=== PATIENT | female | born 1960 | race Caucasian/White ===

== ENCOUNTER → 2016-06-28 | Outpatient (CLI) | payer OTHER ==
[~2016-06-28] MED LIST: DEPO METHYLPREDNISOLONE 40 MG/ML SDV ONE; IOPAMIDOL (ISOVUE 370) 100 ML BTL IV ONE; LIDOCAINE 1% 30 ML SDV ONE; NA BICARBONATE 50 MEQ/50 ML VIAL ONE; ROPIVACAINE HCL 150 MG/30 ML INJ ONE
== END ==
LOC: FIMAGING 12:58
PROVIDERS: ATTEND Orthopaedic Surgery
PROC: 3E0U33Z Introduction of Anti-inflammatory into Joints, Percutaneous Approach (ICD-10-PCS; principal; 2016-06-28)
PROC: 3E0U3BZ Introduction of Anesthetic Agent into Joints, Percutaneous Approach (ICD-10-PCS; principal; 2016-06-28)
DX: M19.91 Primary osteoarthritis, unspecified site (principal); M25.551 Pain in right hip; M25.552 Pain in left hip
CPT/HCPCS: J1020; J2795; Q9967

== ENCOUNTER 2017-03-08 07:23 | Inpatient (IN) | payer OTHER ==
--- NOTE | 2017-02-28 09:14 | GHP ---
[f rep st] PREOP HISTORY AND PHYSICAL DATE OF ADMISSION: 03/08/2017 She will be an a.m. admission for surgery on March 08, 2017. PROBLEM #1: Right hip severe degenerative arthritis. HISTORY OF PRESENT ILLNESS: The patient is a 56-year-old woman admitted for a right total hip arthro plasty. She has severe bilateral hip degenerative arthritis. Her hips are very painful. It is diff icult to walk. She is using a cane. 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 Recently, she has been unable to work because her hips are so painful. She is obese. Her surgery h as been postponed while she has been trying to lose weight. PAST MEDICAL HISTORY: She has a known left bundle branch block. She is treated for hypertension. S he has pulmonary hypertension by ultrasound. No history of stents. She had a pelvic thrombosis when she was . She was on Coumadin a long period of time. No history of hepatitis, sleep apnea, or bleeding problems. CURRENT MEDICATIONS: Losartan 25 mg per day. ALLERGIES: Sulfa causes a rash. Amoxicillin causes hives. Metal allergies: None. Latex allergy: None. SOCIAL HISTORY: The patient does not smoke cigarettes or drink alcohol. 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 Her daughter will be staying with her at home and helping her in her recovery. PHYSICAL EXAMINATION: GENERAL: She is an alert, healthy-appearing woman. EYES: The conjunctivae a nd sclerae are clear. Pupils are round and reactive. MOUTH: Good oral hygiene. No loose teeth. C HEST: Clear. HEART: Regular rhythm. No murmurs. EXTREMITIES: Pertinent findings limited to her right hip. Exam of her right hip shows full hip extension and 70 degrees of flexion. As she flexes the hip, she develops a 20-degree external rotation contracture. IMPRESSION ON ADMISSION: 1. Severe bilateral hip degenerative arthritis. 2. Obesity. 3. Left bundle branch block. 4. Treatment for hypertension. 5. History of pulmonary hypertension. She has dropped her weight from to 270 pounds to 250 pounds. Her body mass index is 39.5. PLAN: She will undergo a right total hip arthroplasty. The surgery has been described to her, inclu ding the risks, complications, expectations, and recovery time. Because of her obesity, her complica tion risk is greater. I have talked to her about the risk of dislocation, leg length inequality, inf ection, and sciatic nerve injury. She understands that she is relatively young and may need revision surgery. Her obesity could also contribute to premature failure of the implants. I will probably l engthen her a little bit on the right side to make her more stable and then lengthen her a similar am ount when I do her left side. All her questions have been answered, and she consents to surgery. She is at a higher risk for DVT, and I will treat her with Lovenox postoperatively for 21 days. /[id number]/MODL
[~2017-03-08 07:23] MED LIST changes: -DEPO METHYLPREDNISOLONE 40 MG/ML SDV ONE; -IOPAMIDOL (ISOVUE 370) 100 ML BTL IV ONE; -LIDOCAINE 1% 30 ML SDV ONE; -NA BICARBONATE 50 MEQ/50 ML VIAL ONE; +NS IV ONE; +POVIDONE-IODINE 20 ML in SODIUM CL IRRIG SOLUTION 500 ML IRR ONE; +ROPIVACAINE 0.2% 80 MG, EPINEPHrine 0.2 MG, KETOROLAC TROMETHAMINE 30 MG in BAG 0 ML IU ONE; -ROPIVACAINE HCL 150 MG/30 ML INJ ONE; +TRANEXAMIC ACID IV ONE
[2017-03-08] MEDS ORDERED: ceFAZolin 1 GM/5 ML SYR ONE (08:01)
[2017-03-08] MEDS ORDERED: FAMOTIDINE 20 MG TAB PO ONE (08:19)
[2017-03-08] MEDS ORDERED: DEXAMETHASONE 4 MG/ML VIAL IVP ONE (08:19)
[2017-03-08] MEDS ORDERED: ceFAZolin 2 GM/SWFI 2 GM/20 ML SYR IVP ONE (08:19)
[2017-03-08] MEDS ORDERED: ACETAMINOPHEN 325 MG TAB PO ONE (08:19)
--- NOTE | 2017-03-08 08:44 | PDHPUP ---
History & Physical Update H&P update statement: This history and physical update is based on an assessment of the patient which was completed after admission or registration (within 24 hours), but prior to the surgery/procedure. H&P update: H&P reviewed & patient examined, no change in patient's condition since H&P completed
[2017-03-08] MEDS ORDERED: LIDOCAINE 1% 2 ML INJ ONE (08:49)
--- NOTE | 2017-03-08 09:02 | PDANEPAE ---
ANE History of Present Illness 56 yo F here with OA for R ALEXIS ANE Past Medical History - Cardiovascular History Hx Hypertension: Yes Hx Arrhythmias: No Hx Chest Pain: No Hx Coronary Artery / Peripheral Vascular Disease: No Hx CHF / Valvular Disease: No Hx Palpitations: No Cardiovascular History Comment: L BBB, Murmur, mild pulmonary HTN dx 10-15 yrs ago. Nuclear stress test -NEG - Pulmonary History Hx COPD: No Hx Asthma/Reactive Airway Disease: No Hx Recent Upper Respiratory Infection: No Hx Oxygen in Use at Home: No Hx Sleep Apnea: No Sleep Apnea Screening Result - Last Documented: Negative Pulmonary History Comment: wheezes with URI- Albuterol PRN - Neurologic History Hx Cerebrovascular Accident: No Hx Seizures: No Hx Dementia: No - Endocrine History Hx Diabetes: No Obesity: moderate - Renal History Hx Renal Disorders: Yes Renal History Comment: tx for UTI's x3 October - Liver History Hx Hepatic Disorders: No - Neurological & Psychiatric Hx Hx Neurological and Psychiatric Disorders: No - Cancer History Hx Cancer: No - Congenital Disorder History Hx Congenital Disorders: No - GI History Hx Gastrointestinal Disorders: No - Other Health History Other Health History: R hip pain -OA (bilat hips and knees) "prickly sensation down R leg,numbness in R ft, R butt pain" - Chronic Pain History Chronic Pain: Yes (R hip) - Surgical History Prior Surgeries: C sections-1988,1991 ANE Review of Systems Review of Systems: - Exercise capacity METS (RN): 4 METS ANE Patient History - Allergies Allergies/Adverse Reactions: amoxicillin [Amoxicillin] Allergy (Verified 02/07/17 13:47) Hives Sulfa (Sulfonamide Antibiotics) [Sulfa(Sulfonamide Antibiotics)] Allergy ( Verified 02/07/17 13:47) Rash - Home Medications Home Medications: Acetaminophen [Tylenol ES 500 mg (*)] 500 mg PO DAILY PRN 02/03/17 [Last Taken Unknown] Albuterol [Proventil Inhaler HFA (*)] 1 - 2 puffs IH DAILY PRN 02/03/17 [Last Taken Unknown] Cholecalciferol Vit D3 [Vitamin D3 (*)] 1,000 units PO DAILY 02/03/17 [Last Taken 1 Week Ago ~03/01/17] Diazepam [Valium 5 MG (*)] 5 mg PO HS PRN 02/03/17 [Last Taken 1 Day Ago ~] Diclofenac Sodium/Misoprostol [Diclofenac-Misoprost 50-200 Tb] 1 each PO BID PRN 02/03/17 [Last Taken 1 Week Ago ~03/01/17] Ibuprofen [Motrin (*)] 200 mg PO DAILY PRN 02/03/17 [Last Taken 1 Week Ago ~] Losartan Potassium [Cozaar 25 mg (*)] 25 mg PO DAILY 02/03/17 [Last Taken 23:30] - NPO status NPO Status: no food or drink >8 hours NPO Since - Liquids (Date): 03/07/17 NPO Since - Liquids (Time): 05:30 NPO Since - Solids (Date): 03/07/17 NPO Since - Solids (Time): 23:30 - Anes Hx Anes Hx: no prior problems - Smoking Hx Smoking Status: Former smoker - Alcohol Use Alcohol Use: None - Family Anes Hx Family Anes Hx: none ANE Labs/Vital Signs - Vital Signs Blood Pressure: 141/90 Heart Rate: 84 Respiratory Rate: 18 O2 Sat (%): 97 Height: 172.72 cm Weight: 113.398 kg ANE Physical Exam - Airway Neck exam: FROM Mallampati Score: Class 2 Mouth exam: normal dental/mouth exam - Pulmonary Pulmonary: no respiratory distress, clear to auscultation - Cardiovascular Cardiovascular: regular rate and rhythym, no murmur, rub, or gallop - ASA Status ASA Status: III ANE Anesthesia Plan Anesthesia Plan: GA with mask, spinal Total IV Anesthesia: Yes
[2017-03-08] MEDS ORDERED: MIDAZOLAM 2 MG/2 ML VIAL ONE (09:03)
[2017-03-08] MEDS ORDERED: MIDAZOLAM 2 MG/2 ML VIAL IVP ONE (09:03)
[2017-03-08] MEDS ORDERED: PROPOFOL/EMULSION 500 MG/50 ML BOTTLE IV ONE ×2 (09:10→10:55)
[2017-03-08] MEDS ORDERED: LR 1,000 ML IV ONE (09:20)
[2017-03-08] MEDS ORDERED: LIDOCAINE 1% 2 ML INJ ID PRN (09:20)
[2017-03-08] MEDS ORDERED: ceFAZolin 1 GM VIAL ONE (10:14)
[2017-03-08] MEDS ORDERED: VASOPRESSIN 20 UNIT/ML VIAL ONE (10:33)
[2017-03-08] MEDS ORDERED: HYDROCODONE/APAP 5/325 TAB PO PRN (11:07)
[2017-03-08] MEDS ORDERED: ACETAMINOPHEN 500 MG TAB PO PRN (11:07)
[2017-03-08] MEDS ORDERED: fentaNYL 100 MCG/2 ML INJ IVP PRN (11:07)
[2017-03-08] MEDS ORDERED: OXYCODONE/APAP 5/325 TAB PO PRN (11:07)
[2017-03-08] MEDS ORDERED: NALOXONE HCL 0.4 MG/ML INJ IVP PRN (11:07)
[2017-03-08] MEDS ORDERED: ALBUTEROL 3 ML DEYVIAL IH PRN (11:07)
[2017-03-08] MEDS ORDERED: ONDANSETRON 4 MG/2 ML VIAL IVP PRN ×2 (11:07→11:56)
[2017-03-08] MEDS ORDERED: PHENYLEPHRINE HCL 100 MCG/ML SYR ONE ×2 (11:08)
--- NOTE | 2017-03-08 11:35 | POSTOPPROG ---
Post Op Note Date of Operation: 03/08/17 Surgeon: Yaniv Carpenter Biomedical Engineering Professor: Bolivar Brown/damaso Childress Anesthesiologist: Dr. Jaspal Roberson Anesthesia: IV Sedation, Spinal Post-op Diagnosis: Right hip degenerative arthritis. Procedure: Right total hip arthroplasty Inf/Abcess present in the surg proc area at time of surgery?: No EBL: 100-500
[2017-03-08] MEDS ORDERED: DIAZEPAM 5 MG TAB PO PRN (11:51)
[2017-03-08] MEDS ORDERED: ALBUTEROL 60 PUFFS/8 GM MDI IH PRN (11:51)
[2017-03-08] MEDS ORDERED: ONDANSETRON DISINTEGRATING 4 MG TAB PO PRN (11:56)
[2017-03-08] MEDS ORDERED: diphenhydrAMINE 25 MG CAP PO PRN (11:56)
[2017-03-08] MEDS ORDERED: oxyCODONE IR 5 MG TAB PO PRN (11:56)
[2017-03-08] MEDS ORDERED: BISACODYL 10 MG SUPP PR PRN (11:56)
[2017-03-08] MEDS ORDERED: METOCLOPRAMIDE 10 MG/2 ML VIAL IVP PRN (11:56)
[2017-03-08] MEDS ORDERED: LACTULOSE 20 GM/30 ML UDCUP PO PRN (11:56)
[2017-03-08] MEDS ORDERED: PROMETHAZINE HCL 25 MG SUPPR PR PRN (11:56)
[2017-03-08] MEDS ORDERED: MAGNESIUM HYDROXIDE 30 ML UDCUP PO PRN (11:56)
[2017-03-08] MEDS ORDERED: PROMETHAZINE HCL 25 MG/ML INJ IVP PRN (11:56)
[2017-03-08] MEDS ORDERED: DIPHENOXYLATE/ATROPINE LOMOTIL 1 TAB PO PRN (11:56)
[2017-03-08] MEDS ORDERED: POLYETHYLENE GLYCOL 3350 17 GM PKT PO PRN (11:56)
[2017-03-08] MEDS ORDERED: NS 500 ML IV PRN (11:56)
[2017-03-08] MEDS ORDERED: CYCLOBENZAPRINE 10 MG TAB PO PRN (11:56)
[2017-03-08] MEDS ORDERED: LR 1,000 ML IV SCH (12:00)
[2017-03-08] MEDS ORDERED: ALBUTEROL 200 PUFFS/18 GM MDI IH PRN (12:11)
--- NOTE | 2017-03-08 15:35 | GOP ---
[f rep st] OPERATIVE REPORT DATE OF OPERATION: 03/08/2017 SURGEON: Yaniv Carpenter MD BACK HOE MACHINE OPERATOR: Bolivar Brown CFA, and Michael Childress PA-C. ANESTHESIA: A combination of Marcaine spinal, and IV sedation by Dr. Jaspal Roberson. PREOPERATIVE DIAGNOSIS: POSTOPERATIVE DIAGNOSIS: Right hip severe degenerative arthritis. PROCEDURE PERFORMED: Right total hip arthroplasty, ceramic femoral head on highly cross-link polyethylene cup liner. FINDINGS: DESCRIPTION OF PROCEDURE: The patient was given 3 g of IV Ancef preoperatively within 60 minutes of surgery. Her weight is 250 pounds necessitating the higher dose of Ancef. She also received IV tranexamic acid at a dose of 20 mg/ kg. She was placed on the operating room table and given spinal anesthesia with Marcaine by Dr. Jaspal Roberson. She was then placed supine and given sedation. A Camacho catheter was not used. She wore a CLAUDIA stocking and SCD on the nonoperative leg. She was rolled to the left lateral decubitus position. The position was secured with the pegboard table attachment. Positioning was difficult because of her size. An axillary roll was used, and all pressure points were carefully padded. I was careful to lock her pelvis in a rigid vertical position. Her perineum was isolated with plastic adhesive drapes. The right hip and right lower extremity were prepped with ChloraPrep. They were draped free using sterile sheets, stockinette, and Ioban plastic drapes. The [employer] Organization time-out was performed to verify the correct surgical side and site and the correct patient identity. The [place] time-out was also performed. I made a 7-8 inch straight oblique posterolateral hip skin incision. Subcutaneous tissues were sharply divided, and hemostasis was obtained using electrocautery. Her layer of subcutaneous fat was 3-4 inches thick. Her fascia mick was identified and split along the axis of its fibers. I then curved posteriorly and proximally, and split the fascia of the gluteus rené and bluntly split the muscle fibers in line with their orientation. The Charnley self-retaining retractor was inserted. Her sciatic nerve was located, partially exposed, and protected throughout the procedure. The external rotators and the posterior hip capsule were divided as separate layers at the base of the femoral neck, tagged, and reflected posteriorly. A smooth eighth- inch Steinmann pin was inserted vertically into the ilium, superior to the acetabulum. An eighth-inch drill bit was inserted vertically into the greater trochanter and parallel to the first pin. The distance between the 2 was measured for leg length reference. Her femoral head was dislocated posteriorly. Severe degenerative changes were present on the femoral head. Her femoral neck was osteotomized at the appropriate level and inclination. I was careful to preserve all the posterior capsule and most of the anterior capsule. The remnant of her badly damaged labrum was excised. I prepared the femur first. This allowed me to continuous dryout operator helper the amount of natural femoral neck anteversion. This, in turn, allowed me to later determine the correct amount of cup anteversion. She had between 15 and 20 degrees of natural femoral neck anteversion. The canal was opened laterally with a box chisel. I hand broached sequentially up to size 4. I used a size 4 Accolade II broach as a trial stem. I was careful to lateralize adequately. Appropriate retractors were inserted to expose her acetabulum. The acetabulum was reamed sequentially up to 53 mm. I selected a 54 mm Gene Tritanium cluster-hole hemispherical shell. This was tapped securely into place in the proper degree of inclination and anteversion. I used the transverse acetabular ligament and other acetabular bony landmarks to help me properly orient the cup. I inserted a 25 mm and a 30 mm supplemental fixation screws through the shell for additional fixation. I also inserted a screw in metal dome hole plug. I performed a series of trial reductions to determine length and stability. I concluded that the size 4 stem with the standard offset and a 0 mm neck, and a 36 mm head with a flush, or 0-degree, liner gave me the proper combination of appropriate length and good anterior and posterior stability. I recognized that I was lengthening her. Because of her preoperative femoral neck fracture, I did not think a high offset stem was a good option for making her more stable. In addition, I am going to be doing her other hip in a couple months, and I will regain the length on the left side at that time. The flush, or 0-degree, Caldwell X3 highly cross-linked polyethylene liner was inserted and tapped securely into place. I selected the Caldwell Accolade II stem in a size 5 with a standard offset. This was inserted press-fit and was very tight. I did one final trial reduction and confirmed that the 0 neck length with a 36 mm head was the proper combination. The Gene Biolox Delta ceramic head with an outside diameter of 36 mm and a neck length of 0 mm was tapped securely onto the clean trunnion. The acetabulum was irrigated and cleaned, and the hip was reduced one final time. She had excellent anterior and posterior stability with a moderate amount of lengthening. 40 mL of the joint anesthetic cocktail was injected into the capsule, the deep musculature, and the subcutaneous tissues around the skin edges. The joint was thoroughly irrigated one final time with a dilute Betadine solution. The sciatic nerve was reinspected and looked unharmed. The external rotators and the posterior hip capsule were repaired in separate layers with #2 FiberWire sutures through drill holes in the greater trochanter. This provided a strong posterior capsular and external rotator repair. The fascia mick was closed first with a couple [id number] #2 FiberWire interrupted sutures followed by a running #2 barbed Ethicon Stratafix PDO suture. The subcutaneous tissues were closed in layers, first using interrupted 3-0 Monocryl sutures followed by a running 0 barbed Ethicon Stratafix Monoderm suture. The skin was closed with a running 3-0 barbed Ethicon Stratafix Monoderm subcuticular suture. The skin edges were reapproximated and sealed with Dermabond glue. The wound was covered with a strip of Mepilex surgical dressing. A long-leg CLAUDIA stocking and SCD were applied to her right lower extremity. An abduction pillow was placed between her knees. She was awakened from anesthesia and rolled to the supine position on her [facility]. She was taken to PACU in satisfactory condition. There were no recognized intraoperative complications. The estimated blood loss was about 400 mL. The sponge and needle count was correct on 2 occasions. I used a Gene Tritanium hemispherical cluster hole acetabular shell with an outside diameter of 54 mm. I used a 25 mm and a 35 mm supplemental fixation screw. The liner was a Gene X3 0-degree highly cross-linked liner with an inside diameter of 36 mm. The femoral component was a Gene press-fit Accolade II standard offset in a size 4. The femoral head was a Caldwell Biolox Delta ceramic head with a 0 neck length and a 36 mm outside diameter. Bolivar Brown CFA, and Michael Childress PA-C acted as surgical assistants. Their assistance was a medical necessity for safe completion of the procedure. POSTOPERATIVE DIAGNOSIS: Right hip severe degenerative arthritis. /[id number]/MODL MTDD
[2017-03-08] MEDS: ACETAMINOPHEN 325 MG TAB PO SCH ×2 (16:03→18:29)
[2017-03-08] MEDS: KETOROLAC 30 MG/1 ML SDV IVP PRN ×2 (16:30→23:10)
--- NOTE | 2017-03-08 17:19 | POSTANESTH ---
Post Anesthetic Evaluation Cardiovascular Status: Normal, Stable, Similar to Pre-Op Cond Respiratory Status: Normal, Stable, Similar to Pre-op Cond. Level of Consciousness/Mental Status: Can Participate in Eval, Alert and Oriented Pain Control: Adequate, Prn Tx Ordered Nausea/Vomiting Control: Adequate, Prn Tx Ordered Complications Possibly Related to Anesthesia: None Noted
[2017-03-08] MEDS: ceFAZolin 2 GM/DEXTROSE 100 ML IV SCH (18:31)
[2017-03-08] MEDS: traMADol 50 MG TAB PO PRN (18:49)
[2017-03-08] MEDS: FAMOTIDINE 20 MG TAB PO SCH (20:09)
[2017-03-08] MEDS: SENNOSIDES/DOCUSATE SODIUM TAB PO SCH (20:09)
[2017-03-09] MEDS: ACETAMINOPHEN 325 MG TAB PO SCH ×3 (00:42→15:18)
[2017-03-09] MEDS: traMADol 50 MG TAB PO PRN ×3 (00:42→12:32)
[2017-03-09] MEDS: ceFAZolin 2 GM/DEXTROSE 100 ML IV SCH (02:09)
[2017-03-09 04:54] VITALS: PULSE 86
[2017-03-09 07:10] VITALS: RESP 16; TEMP 98.2; O2SAT 95
[2017-03-09] MEDS ORDERED: LOSARTAN POTASSIUM 25 MG TAB PO SCH (09:00)
[2017-03-09] MEDS ORDERED: FERROUS SULFATE 140 MG TAB.ER PO SCH (09:00)
[2017-03-09] MEDS ORDERED: ENOXAPARIN 40 MG/0.4 ML SYR SC SCH (09:00)
[2017-03-09] MEDS: SENNOSIDES/DOCUSATE SODIUM TAB PO SCH (09:02)
[2017-03-09] MEDS: FAMOTIDINE 20 MG TAB PO SCH (09:03)
[2017-03-09 09:04] VITALS: BP 113/66
[2017-03-09] MEDS ORDERED: HYDROCODONE/APAP 5/325 TAB PO PRN (09:51)
--- NOTE | 2017-03-09 09:52 | SOAPPROG ---
SOAP Progress Note Assessment/Plan: Assessment: Awake and alert. Afebrile. Mild pain. She has been up and walking. Her dressing is dry. Sciatic nerve intact. H&H are satisfactory. Postop films look good. Plan: Continue physical therapy today. Discharge later today. 03/09/17 09:51 Objective: Vital Signs Temp Pulse Resp BP Pulse Ox 36.8 C 86 16 113/66 95 03/09/17 07:08 03/09/17 07:08 03/09/17 07:08 03/09/17 09:02 03/09/17 07:08 Laboratory Results 03/09/17 04:30 03/08/17 03/09/17 03/10/17 05:59 05:59 05:59 Intake Total 2698 Output Total 550 100 Balance 2148 -100 ICD10 Worksheet Patient Problems: Problems Problem Status Onset Osteoarthritis of right hip Acute
--- NOTE | 2017-03-09 10:08 | GDS ---
[f rep st] DISCHARGE SUMMARY ADMITTING DIAGNOSES: Right hip severe degenerative arthritis. DISCHARGE DIAGNOSES: Right hip severe degenerative arthritis. OPERATION PERFORMED: On 03/08/2017, a right total hip arthroplasty, ceramic femoral head on highly c ross-linked polyethylene cup liner. POSTOPERATIVE COMPLICATIONS: None. CONDITION ON DISCHARGE: Improved. DESCRIPTION OF HOSPITAL COURSE: The patient was admitted to the hospital on the morning of surgery. Her admission CBC was normal. The same day, under a combination of Marcaine, spinal, and IV sedatio n, she underwent a right total hip arthroplasty. Postoperatively, she was treated with multimodal DV T prophylaxis, including Lovenox. She was seen by Physical Therapy and made good progress with ambul ation. On the first postoperative day, her hemoglobin and hematocrit were 10.0 and 30.5. By the time of discharge, she was afebrile. Her wound was clean and dry. She was independent walkin g with a walker. DISPOSITION: She is discharged to her home. DISCHARGE INSTRUCTIONS: She will go to outpatient physical therapy. Continue Lovenox 40 mg subcu da cristofer for 21 days. Use an abduction pillow in bed for 3 weeks. She has prescriptions for oxycodone an d tramadol for pain control. I will see her back in the office on 03/28/2017. If there any problems , she is to call me at the office. /[id number]/MODL
--- NOTE | 2017-03-09 14:18 | ASDISCHSUM ---
Discharge Information Plan Status:Home with No Needs Medically Cleared to Leave: Discharge Date:03/09/2017 01:06 PM CM D/C Disposition:Home, Routine, Self-Care ADT D/C Disposition:Home, Routine, Self-Care Projected Discharge Date:03/09/2017 01:06 PM Transportation at D/C: Discharge Delay Reason: Follow-Up Date:03/09/2017 01:06 PM Discharge Slot: Final Diagnosis: Placement Information Patient Contact Information Contact Name:JSESICA Relationship:Daughter Address: Work Phone: City:[place] Alternate Phone: State/Zip Code:[place] Email: Financial Information Financial Class:[employer] [facility] Primary Plan Number:[id number] Secondary Plan Desc: Secondary Plan Number: Assessment Information Doctor Chiropractic Assessment CJR Did you go to joint Answers: No (why?) Notes: Unable to attend class? Mar.02, sending email with online video CM Note CM Note Notes: Lucrecia is planning to discharge home with her daughter after surgery. Her daughter took off 4 days of work, so she is expecting to have good home care. Lucrecia said she is able to move everything she needs onto the first floor so she does not have to travel up the stairs. She stated she has not attended the joint class, but I let her know I can send her the online video link. Lucrecia has her pre-op appointment with Dr. Carpenter this week. She had many questions centered around outpatient physical therapies and I encouraged her to speak with Dr. Carpenter for recommendations. Date Signed: 02/22/2017 11:42 AM Electronically Signed By:Tricia Tuttle [facility] CM Progress Note CM Note CM Note Notes: Pt medically stable for d/c, no CM d/c needs identified. Date Signed: 03/09/2017 02:17 PM Electronically Signed By:PATIENCE Maguire Intervention Information
--- NOTE | 2017-03-09 14:18 | ASDISCHSUM ---
Discharge Information Plan Status:Home with No Needs Medically Cleared to Leave: Discharge Date:03/09/2017 01:06 PM CM D/C Disposition:Home, Routine, Self-Care ADT D/C Disposition:Home, Routine, Self-Care Projected Discharge Date:03/09/2017 01:06 PM Transportation at D/C: Discharge Delay Reason: Follow-Up Date:03/09/2017 01:06 PM Discharge Slot: Final Diagnosis: Placement Information Patient Contact Information Contact Name:JESSICA Relationship:Daughter Address: Work Phone: City:[place] Alternate Phone: State/Zip Code:[place] Email: Financial Information Financial Class:[employer] [facility] Primary Plan Number:[id number] Secondary Plan Desc: Secondary Plan Number: Assessment Information Carpenter Mate Assessment CJR Did you go to joint Answers: No (why?) Notes: Unable to attend class? Mar.02, sending email with online video CM Note CM Note Notes: Lucrecia is planning to discharge home with her daughter after surgery. Her daughter took off 4 days of work, so she is expecting to have good home care. Lucreica said she is able to move everything she needs onto the first floor so she does not have to travel up the stairs. She stated she has not attended the joint class, but I let her know I can send her the online video link. Lucrecia has her pre-op appointment with Dr. Carpenter this week. She had many questions centered around outpatient physical therapies and I encouraged her to speak with Dr. Carpenter for recommendations. Date Signed: 02/22/2017 11:42 AM Electronically Signed By:Tricia Tuttle [facility] CM Progress Note CM Note CM Note Notes: Pt medically stable for d/c, no CM d/c needs identified. Date Signed: 03/09/2017 02:17 PM Electronically Signed By:PATIENCE Maguire Intervention Information
--- NOTE | 2017-03-09 14:18 | ASDISCHSUM ---
Discharge Information Plan Status:Home with No Needs Medically Cleared to Leave: Discharge Date:03/09/2017 01:06 PM CM D/C Disposition:Home, Routine, Self-Care ADT D/C Disposition:Home, Routine, Self-Care Projected Discharge Date:03/09/2017 01:06 PM Transportation at D/C: Discharge Delay Reason: Follow-Up Date:03/09/2017 01:06 PM Discharge Slot: Final Diagnosis: Placement Information Patient Contact Information Contact Name:JESSICA Relationship:Daughter Address: Work Phone: City:[place] Alternate Phone: State/Zip Code:[place] Email: Financial Information Financial Class:[employer] [facility] Primary Plan Number:[id number] Secondary Plan Desc: Secondary Plan Number: Assessment Information Laundry Tech Assessment CJR Did you go to joint Answers: No (why?) Notes: Unable to attend class? Mar.02, sending email with online video CM Note CM Note Notes: Lucrecia is planning to discharge home with her daughter after surgery. Her daughter took off 4 days of work, so she is expecting to have good home care. Lucrecia said she is able to move everything she needs onto the first floor so she does not have to travel up the stairs. She stated she has not attended the joint class, but I let her know I can send her the online video link. Lucrecia has her pre-op appointment with Dr. Carpenter this week. She had many questions centered around outpatient physical therapies and I encouraged her to speak with Dr. Carpenter for recommendations. Date Signed: 02/22/2017 11:42 AM Electronically Signed By:Tricia Tuttle [facility] CM Progress Note CM Note CM Note Notes: Pt medically stable for d/c, no CM d/c needs identified. Date Signed: 03/09/2017 02:17 PM Electronically Signed By:PATIENCE Maguire Intervention Information
== END 2017-03-09 13:06 | disposition home or self-care (01) | DRG 470 ==
LOC: F3N 07:23
PROVIDERS: ADMIT Orthopaedic Surgery; ATTEND Orthopaedic Surgery
PROC: 0SR904Z Replacement of Right Hip Joint with Ceramic on Polyethylene Synthetic Substitute, Open Approach (ICD-10-PCS; principal; 2017-03-08 09:30)
DX: M16.11 Unilateral primary osteoarthritis, right hip (principal); E66.9 Obesity, unspecified; I10 Essential (primary) hypertension; I44.7 Left bundle-branch block, unspecified; Z68.39 Body mass index [BMI] 39.0-39.9, adult
CPT/HCPCS: 97116-GP; 97161-GP; 97166-GO; 97530-GP; C1713; J0171; J0690; J1100; J1650; J1885; J2250; J2370; J2704; J2795

== ENCOUNTER 2017-06-22 07:04 | Inpatient (IN) | payer OTHER ==
[~2017-06-22 07:04] MED LIST changes: -ROPIVACAINE 0.2% 80 MG, EPINEPHrine 0.2 MG, KETOROLAC TROMETHAMINE 30 MG in BAG 0 ML IU ONE; +ROPIVACAINE 0.2% 80 MG, EPINEPHrine 0.2 MG, KETOROLAC TROMETHAMINE 30 MG in SYRINGE 0 ML IU ONE
[2017-06-22] MEDS ORDERED: FAMOTIDINE 20 MG TAB PO ONE (07:22)
[2017-06-22] MEDS ORDERED: ACETAMINOPHEN 325 MG TAB PO ONE (07:22)
[2017-06-22] MEDS ORDERED: ceFAZolin 2 GM/SWFI 2 GM/20 ML SYR IVP ONE (07:22)
[2017-06-22] MEDS ORDERED: DEXAMETHASONE 4 MG/ML VIAL IVP ONE (07:22)
[2017-06-22] MEDS ORDERED: GABAPENTIN 300 MG CAP PO ONE (07:22)
[2017-06-22] MEDS ORDERED: LR 1,000 ML IV ONE (07:25)
[2017-06-22] MEDS ORDERED: ceFAZolin 1 GM/5 ML SYR ONE (07:46)
[2017-06-22] MEDS ORDERED: MIDAZOLAM 2 MG/2 ML VIAL IVP ONE (09:42)
[2017-06-22] MEDS ORDERED: MIDAZOLAM 2 MG/2 ML VIAL ONE (09:42)
--- NOTE | 2017-06-22 09:42 | PDANEPAE ---
ANE History of Present Illness L ALEXIS ANE Past Medical History - Cardiovascular History Hx Hypertension: Yes Hx Arrhythmias: No Hx Chest Pain: No Hx Coronary Artery / Peripheral Vascular Disease: No Hx CHF / Valvular Disease: No Hx Palpitations: No Cardiovascular History Comment: L BBB, Murmur, mild pulmonary HTN dx 10-15 yrs ago. Nuclear stress test -NEG - Pulmonary History Hx COPD: No Hx Asthma/Reactive Airway Disease: Yes Hx Recent Upper Respiratory Infection: No Hx Oxygen in Use at Home: No Hx Sleep Apnea: No Sleep Apnea Screening Result - Last Documented: Positive Pulmonary History Comment: ENVIRONMENTAL/ANIMAL ISSUES OR. RESPIRATORY ISSUES HAS NOT USED INHALER IN 2 YRS. - Neurologic History Hx Cerebrovascular Accident: No Hx Seizures: No Hx Dementia: No - Endocrine History Hx Diabetes: No Obesity: moderate - Renal History Hx Renal Disorders: Yes Renal History Comment: CHRONIC UTI LAST 03/2017 - Liver History Hx Hepatic Disorders: No - Neurological & Psychiatric Hx Hx Neurological and Psychiatric Disorders: No - Cancer History Hx Cancer: No - Congenital Disorder History Hx Congenital Disorders: No - GI History Hx Gastrointestinal Disorders: No - Other Health History Other Health History: OSTEOARTHRITIS. NUMBNESS RT FOOT IMPROVED POST RT TOTAL HIP 03/2017. PELVIC THROMBOPHLEBITIS - Chronic Pain History Chronic Pain: Yes (LT HIP) - Surgical History Prior Surgeries: RT TOTAL HIP 03/2017. C sections-1988,1991 ANE Review of Systems Review of Systems: - Exercise capacity METS (RN): 4 METS ANE Patient History - Allergies Allergies/Adverse Reactions: amoxicillin [Amoxicillin] Allergy (Verified 05/25/17 14:16) Hives Sulfa (Sulfonamide Antibiotics) [Sulfa(Sulfonamide Antibiotics)] Allergy ( Verified 05/25/17 14:16) Rash - Home Medications Home medications: home medication list seen and reviewed Home Medications: Albuterol [Proventil Inhaler HFA (*)] 1 - 2 puffs IH DAILY PRN 02/03/17 [Last Taken 06/02/16] Losartan Potassium [Cozaar 25 mg (*)] 25 mg PO DAILY 02/03/17 [Last Taken 22:00] Acetaminophen [Tylenol ES 500 mg (*)] 1,000 mg PO BID 05/25/17 [Last Taken 06/21 22:00] Diclofenac Sodium/Misoprostol [Diclofenac-Misoprost 50-200 Tb] 1 each PO BID [Last Taken 06/15/17] Ibuprofen [Motrin (*)] 600 mg PO Q4H PRN 05/25/17 [Last Taken 04/01/17] - NPO status NPO Since - Liquids (Date): 06/22/17 NPO Since - Liquids (Time): 04:30 NPO Since - Solids (Date): 06/21/17 NPO Since - Solids (Time): 22:00 - Anes Hx Anes Hx: no prior problems - Smoking Hx Smoking Status: Former smoker - Alcohol Use Alcohol Use: None - Family Anes Hx Family Anes Hx: none ANE Labs/Vital Signs - Vital Signs Blood Pressure: 143/98 Heart Rate: 93 Respiratory Rate: 16 O2 Sat (%): 96 Height: 172.09 cm Weight: 113.398 kg ANE Physical Exam - Airway Neck exam: FROM Mallampati Score: Class 2 Mouth exam: normal dental/mouth exam - Pulmonary Pulmonary: no respiratory distress, clear to auscultation - Cardiovascular Cardiovascular: regular rate and rhythym, no murmur, rub, or gallop - ASA Status ASA Status: III ANE Anesthesia Plan Anesthesia Plan: GA with mask, spinal Total IV Anesthesia: Yes
[2017-06-22] MEDS ORDERED: PROPOFOL/EMULSION 500 MG/50 ML BOTTLE IV ONE ×2 (09:47→10:54)
[2017-06-22] MEDS ORDERED: PHENYLEPHRINE 10 MG/ML SDV ONE (10:34)
[2017-06-22] MEDS ORDERED: PHENYLEPHRINE HCL 100 MCG/ML SYR ONE (10:34)
--- NOTE | 2017-06-22 11:54 | POSTOPPROG ---
Post Op Note Date of Operation: 06/22/17 Surgeon: Yaniv Carpenter Corrosion Control Specialist: Dianelys Anesthesiologist: Karol Anesthesia: IV Sedation, Spinal Post-op Diagnosis: Left hip severe degenerative arthritis. Procedure: Left total hip arthroplasty. Inf/Abcess present in the surg proc area at time of surgery?: No Depth: Superfical (Skin SQ) (Severe obesity)
[2017-06-22] MEDS ORDERED: PROPOFOL 200 MG/20 ML VIAL ONE (11:57)
[2017-06-22] MEDS ORDERED: ALBUTEROL 60 PUFFS/8 GM MDI IH PRN (12:09)
[2017-06-22] MEDS ORDERED: diphenhydrAMINE 25 MG CAP PO PRN (12:10)
[2017-06-22] MEDS ORDERED: BISACODYL 10 MG SUPP PR PRN (12:10)
[2017-06-22] MEDS ORDERED: MAGNESIUM HYDROXIDE 30 ML UDCUP PO PRN (12:10)
[2017-06-22] MEDS ORDERED: LACTULOSE 20 GM/30 ML UDCUP PO PRN (12:10)
[2017-06-22] MEDS ORDERED: METOCLOPRAMIDE 10 MG/2 ML VIAL IVP PRN (12:10)
[2017-06-22] MEDS ORDERED: PROMETHAZINE HCL 25 MG/ML INJ IVP PRN (12:10)
[2017-06-22] MEDS ORDERED: POLYETHYLENE GLYCOL 3350 17 GM PKT PO PRN (12:10)
[2017-06-22] MEDS ORDERED: TEMAZEPAM 15 MG CAP PO PRN (12:10)
[2017-06-22] MEDS ORDERED: DIPHENOXYLATE/ATROPINE LOMOTIL 1 TAB PO PRN (12:10)
[2017-06-22] MEDS ORDERED: ONDANSETRON DISINTEGRATING 4 MG TAB PO PRN (12:10)
[2017-06-22] MEDS ORDERED: ONDANSETRON 4 MG/2 ML VIAL IVP PRN ×2 (12:10→12:14)
[2017-06-22] MEDS ORDERED: PROMETHAZINE HCL 25 MG SUPPR PR PRN (12:10)
[2017-06-22] MEDS ORDERED: NS 500 ML IV PRN (12:10)
[2017-06-22] MEDS ORDERED: HYDROCODONE/APAP 5/325 TAB PO PRN (12:14)
[2017-06-22] MEDS ORDERED: NALOXONE HCL 0.4 MG/ML INJ IVP PRN (12:14)
[2017-06-22] MEDS ORDERED: fentaNYL 100 MCG/2 ML INJ IVP PRN (12:14)
[2017-06-22] MEDS ORDERED: HYDROmorphONE/DILAUDID 1 MG/ML INJ IVP PRN (12:14)
[2017-06-22] MEDS ORDERED: OXYCODONE/APAP 5/325 TAB PO PRN (12:14)
[2017-06-22] MEDS ORDERED: ACETAMINOPHEN 500 MG TAB PO PRN (12:14)
[2017-06-22] MEDS ORDERED: LR 1,000 ML IV SCH (12:30)
--- NOTE | 2017-06-22 12:49 | GOP ---
[f rep st] OPERATIVE REPORT DATE OF OPERATION: 06/22/2017 SURGEON: Yaniv Carpenter MD MASS SPECTROSCOPIST: Bolivar Brown [facility], and Guero Childress, PAC ANESTHESIA: Marcaine spinal and IV sedation, Jaspal Roberson MD. PREOPERATIVE DIAGNOSIS: 1. Left hip severe degenerative arthritis. 2. Severe obesity. POSTOPERATIVE DIAGNOSIS: 1. Left hip severe degenerative arthritis. 2. Severe obesity. PROCEDURE PERFORMED: FINDINGS: DESCRIPTION OF PROCEDURE: The patient was given 2 g of IV Ancef preoperatively within 60 minutes of surgery. She also received IV tranexamic acid at a dose of 20 mg/kg. She was placed on the operatin g room table and given spinal anesthesia with Marcaine by Dr. Roberson. She was then placed supine and given IV sedation. A Camacho catheter was not used. She wore a CLAUDIA stocking and SCD on the nonoperati ve leg. She was rolled to the right lateral decubitus position. She was very obese, and that made p ositioning and stabilization of her pelvis difficult. The position was secured with the pegboard tab le attachment. An axillary roll was used, and all pressure points were carefully padded. I was care ful to lock her pelvis as rigidly as possible in a vertical position. Her perineum was isolated with plastic adhesive drapes. The left hip and left lower extremity were prepped with ChloraPrep. They were draped free using sterile sheets, stockinette, and Ioban plastic drapes. The World [employer] Organization time-out was performed to verify the correct surgical side and site and the correct patient identity. The [place] time-out was also performed. I made an approximately 8-i gah straight oblique posterolateral hip skin incision. Subcutaneous tissues were sharply divided, an d hemostasis was obtained using electrocautery. She had an approximately 4-inch thick layer of subcu taneous fat. Her size made the exposure difficult, and it required a larger incision. Her fascia la ta was identified and split along the axis of its fibers. I curved posteriorly and proximally, and s plit the fascia of the gluteus rené and bluntly split the muscle fibers in line with their orienta tion. The Charnley self-retaining retractor was inserted. Her sciatic nerve was located, partially exposed and protected throughout the procedure. Because of her size, it was necessary to used the sp ecial bariatric retractor set. The external rotators were divided at the base of the femoral neck, t agged, and reflected posteriorly. Her capsule was very thin and scarred because of the severe arthri tis. It was not possible to identify a specific capsular layer which could later be repaired. A [facility] 8-inch Steinmann pin was inserted vertically into the ilium, superior to the acetabulum. An 8th- inch drill bit was inserted vertically into the greater trochanter and parallel to the first pin. Th e distance between the two was measured for leg length reference. Her femoral head was dislocated po steriorly. Severe degenerative changes were present on the head. Her femoral neck was osteotomized at the appropriate level and inclination. She had a lot of osteophyte formation around the periphery of her acetabulum. These were trimmed with a rongeur. The remnant of her damaged labrum was completely excised. The femur was prepared first. This allowed me to marble helper the amount of natural femoral neck anteversio n. She had 20 to 25degrees of natural femoral neck anteversion. Her canal was opened laterally with a box chisel. I then used a starter reamer followed by hand broaching sequentially up to a size 4. I was using a Gene Accolade 2 stem. The size 4 broach was used as a trial stem. I was careful t o lateralize adequately. Appropriate retractors were inserted to expose her acetabulum. The acetabulum was reamed sequentiall y up to a size 53 mm. I selected the 54 mm [place] Tritanium cluster-holed hemispherical shell. Thi s was tapped securely into place in the proper degree of inclination and anteversion. I had over ant everted her acetabular component on the right side when I had done her right total hip. I was carefu l to dial back less anteversion on this side. I used the remnant of her transverse acetabular ligame nt and other acetabular bony landmarks to help me properly orient the cup. The cup fixation was not as tight is I typically expect. I inserted two 25 mm screws and one 30 mm screw through the acetabul ar shell into the ilium. The screw purchase was excellent and provided adequate stability of the cup . I performed a series of trial reductions to determine length and stability. I concluded that the siz e 4 stem with standard offset and a -5 mm neck with a 36 mm head and a 0 degree trial liner gave me t he proper combination of appropriate length and good anterior and posterior stability. She was 3-5 m m short on the left preoperatively, and I was intentionally lengthening her. The 0 degree, or flush, Gene X3 highly cross-linked polyethylene liner was inserted and tapped sec urely into place. I chose the Gene Accolade II stem in a size 4 with standard offset. This was i nserted press-fit and was very tight. I did one final trial reduction and confirmed that the -5 mm n silvino length with a 36 mm head was the proper combination. I selected the [place] Biolox Delta ceramic head with an outside diameter of 36 mm and a neck length of -5 mm. This was tapped securely onto th e clean trunnion. The acetabulum was irrigated and cleaned, and the hip was reduced one final time. She had excellent anterior and posterior stability and appropriate lengthening. 40 mL of the joint anesthetic cocktail was injected into the capsule, the deep musculature, and subcu taneous tissues around the skin edges. The joint was thoroughly irrigated one final time with a dilu te Betadine solution. Her sciatic nerve was reinspected and looked unharmed. The external rotators were repaired with #2 FiberWire sutures through drill holes in the greater troc hanter. Her fascia mick was repaired first with 2 [id number]-[id number] #2 FiberWire sutures followed by a running #2 barbed Ethicon Stratafix PDO suture. Her subcutaneous tissues were closed in layers usin g interrupted 3-0 Monocryl sutures followed by a running 0 barbed Ethicon Stratafix Monoderm suture. The skin was closed with a running 3-0 barbed Ethicon Stratafix Monoderm subcuticular suture. The s kin edges were reapproximated and sealed with Dermabond glue. The wound was covered with a large Mep ilex, water-proof surgical dressing. A Claudia stocking and SCD were applied to her left lower extremity. She wore a stocking and SCD on the opposite leg during the procedure. An abduction pillow was placed between her knees. She was awaken ed from anesthesia and rolled to the supine position on her [facility]. She was taken to PACU i n satisfactory condition. There were no recognized intraoperative complications. The estimated blood loss was about 400 mL. The procedure overall was quite difficult because of her size. The sponge and needle count were correct on 2 occasions. I used a Gene Tritanium hemispherical cluster-holed press-fit acetabular shell with an outside ethan meter of 54 mm. I inserted 3 supplemental fixation screws through the liner. The liner was a Stryke r X3 0-degree highly cross-linked liner with an inside diameter of 36 mm. The femoral component was a standard offset Accolade II stem in a size 4 and press-fit. The femoral head was a Gene Biolox Delta ceramic head with a -5 mm neck length and a 36 mm outside diameter. Bolivar Brown, OCCUPATIONAL THER, and Guero Childress, PAC, acted as surgical assistants. Their assistance was a medical necessity for safe completion of the procedure. OPERATIONS PERFORMED: A left total hip arthroplasty, ceramic femoral head on highly cross-linked simone yethylene cup liner. /[id number]/MODL
[2017-06-22] MEDS ORDERED: ceFAZolin 2 GM/SWFI 2 GM/20 ML SYR IVP SCH (14:00)
[2017-06-22] MEDS ORDERED: ceFAZolin 2 GM/DEXTROSE 100 ML IV SCH (14:00)
[2017-06-22] MEDS: ceFAZolin 2 GM/SWFI 2 GM/20 ML SYR IVP SCH ×2 (16:34→23:26)
[2017-06-22] MEDS: KETOROLAC 30 MG/1 ML SDV IVP PRN ×2 (16:35→23:26)
[2017-06-22] MEDS: CYCLOBENZAPRINE 10 MG TAB PO PRN (16:35)
[2017-06-22] MEDS: ACETAMINOPHEN 325 MG TAB PO SCH ×2 (17:38→23:28)
[2017-06-22] MEDS: HYDROCODONE/APAP 5/325 TAB PO PRN ×2 (17:47→23:25)
[2017-06-22] MEDS: oxyCODONE IR 5 MG TAB PO PRN (21:04)
[2017-06-22] MEDS: DIAZEPAM 5 MG TAB PO PRN (21:05)
[2017-06-22] MEDS: FAMOTIDINE 20 MG TAB PO SCH (21:05)
[2017-06-22] MEDS: SENNOSIDES/DOCUSATE SODIUM TAB PO SCH (21:05)
[2017-06-22] MEDS: LOSARTAN POTASSIUM 25 MG TAB PO SCH (21:06)
[2017-06-23] MEDS: oxyCODONE IR 5 MG TAB PO PRN ×4 (01:25→18:01)
[2017-06-23] MEDS: DIAZEPAM 5 MG TAB PO PRN ×2 (03:04→21:15)
[2017-06-23] MEDS: ACETAMINOPHEN 325 MG TAB PO SCH ×3 (06:17→18:38)
[2017-06-23] MEDS: HYDROCODONE/APAP 5/325 TAB PO PRN ×3 (07:29→21:16)
[2017-06-23] MEDS: KETOROLAC 30 MG/1 ML SDV IVP PRN ×2 (07:29→16:04)
--- NOTE | 2017-06-23 07:41 | SOAPPROG ---
SOAP Progress Note Assessment/Plan: Assessment: Afebrile. Awake and alert. C/O a lot of pain. Pain radiates down her leg. c/O numbness in leg and foot. Needed catheter in PACU. H/H is good. Films look good. No active foot or toes dorsiflexion. 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 Plan:Try to mobilize. AFO for left ankle. Manage pain. She can't take celebrex because of sulfa allergy. On lovenox for high risk DVT. She will need to be hospitalized several days to observe sciatic nerve injury. 06/23/17 07:37 Objective: Vital Signs Temp Pulse Resp BP Pulse Ox 37.0 C 107 H 16 158/91 H 93 06/23/17 03:10 06/23/17 03:10 06/23/17 03:10 06/23/17 03:10 06/23/17 03:10 Laboratory Results 06/23/17 04:35 06/22/17 06/23/17 06/24/17 05:59 05:59 05:59 Intake Total 2910 300 Output Total 1250 1150 Balance 1660 -850 ICD10 Worksheet Patient Problems: Problems Problem Status Onset Osteoarthritis of left hip Acute Osteoarthritis of right hip Acute
[2017-06-23] MEDS: GABAPENTIN 300 MG CAP PO SCH ×2 (08:49→21:15)
[2017-06-23] MEDS: ENOXAPARIN 40 MG/0.4 ML SYR SC SCH (08:49)
[2017-06-23] MEDS: FAMOTIDINE 20 MG TAB PO SCH ×2 (08:50→21:16)
[2017-06-23] MEDS: SENNOSIDES/DOCUSATE SODIUM TAB PO SCH ×2 (08:50→21:19)
[2017-06-23] MEDS: FERROUS SULFATE 140 MG TAB.ER PO SCH (08:50)
[2017-06-23] MEDS ORDERED: LOSARTAN POTASSIUM 25 MG TAB PO SCH (09:00)
[2017-06-23] MEDS: CYCLOBENZAPRINE 10 MG TAB PO PRN (10:00)
[2017-06-23] MEDS: traMADol 50 MG TAB PO PRN ×2 (11:58→21:15)
--- NOTE | 2017-06-23 15:45 | ASMTCMCOM ---
CM Note CM Note Notes: Pt s/p L total hip arthroplasty. OT rec home/HHC/SNF, PT rec HHC. When this CM discuss discharge w pt she is adamant she will go home and declines HHC at this time. Pt reports her pain is improving and she will have support of her dghtr Chel at home. CM to follow pt progress. Date Signed: 06/23/2017 03:45 PM Electronically Signed By:PATIENCE Maguire
[2017-06-23] MEDS: LOSARTAN POTASSIUM 25 MG TAB PO SCH (21:18)
[2017-06-24] MEDS: oxyCODONE IR 5 MG TAB PO PRN ×3 (01:02→13:06)
[2017-06-24] MEDS: ACETAMINOPHEN 325 MG TAB PO SCH ×3 (02:16→10:52)
[2017-06-24] MEDS: DIAZEPAM 5 MG TAB PO PRN (04:28)
[2017-06-24] MEDS: HYDROCODONE/APAP 5/325 TAB PO PRN ×3 (04:28→18:03)
--- NOTE | 2017-06-24 07:26 | SOAPPROG ---
SOAP Progress Note Assessment/Plan: Assessment: Afebrile. Awake and alert. C/O a lot of pain. Pain radiates down her leg. c/O numbness in leg and foot. Needed catheter in PACU. H/H is good. Films look good. No active foot or toes dorsiflexion. 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 Plan:Try to mobilize. AFO for left ankle. Manage pain. She can't take celebrex because of sulfa allergy. On lovenox for high risk DVT. She will need to be hospitalized several days to observe sciatic nerve injury. 06/23/17 07:37 06/24/17 07:25 Afebrile. BP stable. A little less pain today. Has AFO. Was able to take a few steps in room yesterday. H/H is stable. Still has complete foot drop. Cause of sciatic nerve injury was explained to her again. P: Continue PT. She still wants to go directly home. DC Sat. Objective: Vital Signs Temp Pulse Resp BP Pulse Ox 37.1 C 102 H 17 102/58 L 98 06/24/17 00:00 06/24/17 00:00 06/24/17 00:00 06/24/17 00:00 06/24/17 00:00 Laboratory Results 06/24/17 04:27 06/23/17 06/24/17 06/25/17 05:59 05:59 05:59 Intake Total 2910 1100 Output Total 1250 1950 Balance 1660 -850 ICD10 Worksheet Patient Problems: Problems Problem Status Onset Osteoarthritis of left hip Acute Osteoarthritis of right hip Acute
[2017-06-24] MEDS: FAMOTIDINE 20 MG TAB PO SCH ×2 (08:12→20:59)
[2017-06-24] MEDS: GABAPENTIN 300 MG CAP PO SCH ×2 (08:12→20:59)
[2017-06-24] MEDS: CYCLOBENZAPRINE 10 MG TAB PO PRN (08:12)
[2017-06-24] MEDS: FERROUS SULFATE 140 MG TAB.ER PO SCH (08:12)
[2017-06-24] MEDS: SENNOSIDES/DOCUSATE SODIUM TAB PO SCH ×2 (08:12→20:58)
[2017-06-24] MEDS: ENOXAPARIN 40 MG/0.4 ML SYR SC SCH (08:13)
[2017-06-24] MEDS: traMADol 50 MG TAB PO PRN ×2 (10:55→18:04)
--- NOTE | 2017-06-24 12:00 | ASMTCMCOM ---
CM Note CM Note Notes: [facility] [phone] established auth for pt HHC PT with start of care 06/28/17 (intake # is [id number]). Kati will contact pt and find HHC provider. If pt does not d/c by 06/28/17 [facility]. Once orders obtained CM fax to [phone]. Pt declined HHC but w [employer] insurance it would be prudent to keep the auth in case pt changes her mind and CM can notify Kati if no HHC needed. Date Signed: 06/24/2017 11:59 AM Electronically Signed By:PATIENCE Maguire
[2017-06-24] MEDS ORDERED: DICLOFENAC SODIUM 50 MG TAB PO PRN ×2 (13:18→13:38)
[2017-06-24] MEDS ORDERED: MISOPROSTOL 200 MCG TAB PO PRN (13:20)
[2017-06-24] MEDS ORDERED: [UNRECOGNIZED DRUG - OTHER] PO PRN (13:36)
[2017-06-24] MEDS ORDERED: [UNRECOGNIZED DRUG - OTHER] PO SCH (21:00)
[2017-06-24] MEDS: LOSARTAN POTASSIUM 25 MG TAB PO SCH (21:04)
[2017-06-25] MEDS: oxyCODONE IR 5 MG TAB PO PRN ×2 (00:26→09:13)
[2017-06-25] MEDS: DIAZEPAM 5 MG TAB PO PRN (00:27)
[2017-06-25] MEDS: [UNRECOGNIZED DRUG - OTHER] PO SCH ×2 (00:46→12:10)
[2017-06-25] MEDS: ACETAMINOPHEN 325 MG TAB PO SCH ×3 (00:48→12:09)
[2017-06-25 01:05] VITALS: RESP 18
[2017-06-25] MEDS: HYDROCODONE/APAP 5/325 TAB PO PRN ×2 (05:58→12:09)
--- NOTE | 2017-06-25 07:59 | SOAPPROG ---
SOAP Progress Note Assessment/Plan: Assessment: Afebrile. Awake and alert. C/O a lot of pain. Pain radiates down her leg. c/O numbness in leg and foot. Needed catheter in PACU. H/H is good. Films look good. No active foot or toes dorsiflexion. 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 Plan:Try to mobilize. AFO for left ankle. Manage pain. She can't take celebrex because of sulfa allergy. On lovenox for high risk DVT. She will need to be hospitalized several days to observe sciatic nerve injury. 06/23/17 07:37 06/24/17 07:25 Afebrile. BP stable. A little less pain today. Has AFO. Was able to take a few steps in room yesterday. H/H is stable. Still has complete foot drop. Cause of sciatic nerve injury was explained to her again. P: Continue PT. She still wants to go directly home. DC 06/25/17 07:58 Afebrile. Much less pain now. Very little LLE neuritic pain. Still has absent ankle and toe dorsiflexion. Walking in burgos. She is using her AFO intermittantly. Dsg is dry. DC to home today. Will go to OP PT at our [place] office. Objective: Vital Signs Temp Pulse Resp BP Pulse Ox 36.9 C 87 18 100/68 100 06/25/17 00:00 06/25/17 00:00 06/25/17 00:00 06/25/17 00:00 06/25/17 00:00 Laboratory Results 06/24/17 04:27 06/24/17 06/25/17 06/26/17 05:59 05:59 05:59 Intake Total 1100 Output Total 1950 Balance -850 ICD10 Worksheet Patient Problems: Problems Problem Status Onset Osteoarthritis of left hip Acute Osteoarthritis of right hip Acute
[2017-06-25 08:26] VITALS: BP 126/84; PULSE 98; TEMP 98.3; O2SAT 90
--- NOTE | 2017-06-25 08:43 | GDS ---
[f rep st] DISCHARGE SUMMARY ADMISSION DIAGNOSES: 1. Left hip severe degenerative arthritis. 2. Obesity. DISCHARGE DIAGNOSES: 1. Left hip severe degenerative arthritis. 2. Obesity. OPERATION PERFORMED: 06/22/2017, a left total hip arthroplasty. DESCRIPTION OF HOSPITAL COURSE: The patient was admitted to the hospital on the morning of surgery. Her admission CBC was normal. The same day, under a combination of Marcaine, spinal, and IV sedatio n, she underwent a left total hip arthroplasty. Postoperatively, she had a left-sided sciatic nerve injury with a footdrop. She was treated with multimodal DVT prophylaxis including Lovenox. She has had previous thromboembolic disease and is at high risk for recurrent DVT. On the second postoperati ve day, her hemoglobin and hematocrit were 10.5 and 32.6. She was fitted with an AFO for her left an kle and foot to treat the foot drop. She was seen by Physical Therapy and made slow but steady progr ess. She had quite a bit of neuritic pain for the first 48 hours after surgery, but that was improvi ng by the time of discharge. DISPOSITION: The patient is discharged to her home. She will go to outpatient physical therapy at [facility] PT office. Continue Lovenox for 21 days. She may progress to 50% weightbearing on the left. Use CLAUDIA stockings for 1 week. Abduction pillow in bed for 3 weeks. I will see her back in e office on July 14, 2017. If there any problems, she is to call me at the office. /[id number]/MODL
[2017-06-25] MEDS: FERROUS SULFATE 140 MG TAB.ER PO SCH (09:05)
[2017-06-25] MEDS: FAMOTIDINE 20 MG TAB PO SCH (09:05)
[2017-06-25] MEDS: SENNOSIDES/DOCUSATE SODIUM TAB PO SCH (09:05)
[2017-06-25] MEDS: ENOXAPARIN 40 MG/0.4 ML SYR SC SCH (09:06)
[2017-06-25] MEDS: GABAPENTIN 300 MG CAP PO SCH (09:06)
[2017-06-25] MEDS: CYCLOBENZAPRINE 10 MG TAB PO PRN (09:13)
--- NOTE | 2017-06-25 11:11 | ASMTCMCOM ---
CM Note CM Note Notes: Patient has been medically cleared for discharge to home per surgeon. She has declined HHC and will follow up with outpatient physical therapy. CM available should needs arise. Date Signed: 06/25/2017 11:11 AM Electronically Signed By:Concepcion Olivarez RN
--- NOTE | 2017-06-25 11:14 | ASMTLACE ---
ROBERTE Length of stay for Answers: 4-6 days current admission Acuity / Level of Answers: Yes Care: Did the patient have an inpatient admission? # of Emergency department Answers: 0 visits in the last 6 months Score: 7 Date Signed: 06/25/2017 11:13 AM Electronically Signed By:Concepcion Olivarez RN
== END 2017-06-25 13:33 | disposition home or self-care (01) | DRG 470 ==
LOC: F3N 07:04
PROVIDERS: ADMIT Orthopaedic Surgery; ATTEND Orthopaedic Surgery
PROC: 0SRB04Z Replacement of Left Hip Joint with Ceramic on Polyethylene Synthetic Substitute, Open Approach (ICD-10-PCS; principal; 2017-06-22 09:15)
DX: M16.12 Unilateral primary osteoarthritis, left hip (principal); E66.9 Obesity, unspecified; G58.8 Other specified mononeuropathies; I27.20 Pulmonary hypertension, unspecified; I44.7 Left bundle-branch block, unspecified; Z87.440 Personal history of urinary (tract) infections; Z96.641 Presence of right artificial hip joint; Z88.2 Allergy status to sulfonamides; Z87.891 Personal history of nicotine dependence; Z86.718 Personal history of other venous thrombosis and embolism; Z68.39 Body mass index [BMI] 39.0-39.9, adult
CPT/HCPCS: 97116-GP; 97162-GP; 97166-GO; 97530-GP; 97535-GO; C1713; J0171; J0690; J1100; J1650; J1885; J2250; J2370; J2704; J2795

== ENCOUNTER 2018-02-07 05:48 | Observation (INO) | payer OTHER ==
[2018-02-07] MEDS ORDERED: LIDOCAINE 1% 2 ML INJ ID PRN (05:58)
[2018-02-07] MEDS ORDERED: LR 1,000 ML IV ONE (05:58)
[2018-02-07] MEDS ORDERED: ONDANSETRON 4 MG/2 ML VIAL IVP ONE (05:58)
[2018-02-07] MEDS ORDERED: DEXAMETHASONE 4 MG/ML VIAL IVP ONE (05:58)
[2018-02-07] MEDS ORDERED: ACETAMINOPHEN 325 MG TAB PO ONE (05:58)
[2018-02-07] MEDS ORDERED: GABAPENTIN 300 MG CAP PO ONE (05:58)
[2018-02-07] MEDS ORDERED: FAMOTIDINE 20 MG TAB PO ONE (05:58)
[2018-02-07] MEDS ORDERED: ceFAZolin 2 GM/DEXTROSE 100 ML IV ONE (05:58)
[2018-02-07] MEDS ORDERED: POVIDONE-IODINE 20 ML in SODIUM CL IRRIG SOLUTION 500 ML IRR ONE (06:00)
[2018-02-07] MEDS ORDERED: TRANEXAMIC ACID 2,000 MG in NS 100 ML IV ONE (06:00)
[2018-02-07] MEDS ORDERED: TRANEXAMIC ACID 1,000 MG in NS 100 ML IV ONE (06:00)
[2018-02-07] MEDS ORDERED: ROPIVACAINE 0.2% 80 MG, EPINEPHrine 0.2 MG, KETOROLAC TROMETHAMINE 30 MG in SYRINGE 0 ML IU ONE (06:00)
[2018-02-07] MEDS ORDERED: TRANEXAMIC ACID 3,000 MG in NS (SYRINGE) 50 ML IRR ONE (06:00)
[2018-02-07] MEDS ORDERED: VANCOMYCIN 1 GM VIAL ONE (06:35)
[2018-02-07] MEDS ORDERED: TRANEXAMIC ACID 3,000 MG/50 ML BAG IRR ONE (06:35)
[2018-02-07] MEDS ORDERED: ceFAZolin 1 GM/5 ML SYR ONE (06:35)
[2018-02-07] MEDS ORDERED: oxyCODONE IR 5 MG TAB PO PRN (06:51)
[2018-02-07] MEDS ORDERED: fentaNYL 100 MCG/2 ML INJ IVP PRN (06:51)
[2018-02-07] MEDS ORDERED: HYDROCODONE/APAP 5/325 TAB PO PRN (06:51)
[2018-02-07] MEDS ORDERED: ONDANSETRON 4 MG/2 ML VIAL IVP PRN ×2 (06:51→09:32)
[2018-02-07] MEDS ORDERED: HYDROmorphONE/DILAUDID 2 MG/ML INJ IVP PRN (06:51)
[2018-02-07] MEDS ORDERED: ACETAMINOPHEN 500 MG TAB PO PRN (06:51)
[2018-02-07] MEDS ORDERED: NALOXONE HCL 0.4 MG/ML INJ IVP PRN (06:51)
[2018-02-07] MEDS ORDERED: ALBUTEROL 3 ML DEYVIAL IH PRN (06:51)
[2018-02-07] MEDS ORDERED: PROMETHAZINE HCL 25 MG/ML INJ IVP PRN ×2 (06:51→09:32)
[2018-02-07] MEDS ORDERED: MIDAZOLAM 2 MG/2 ML VIAL IVP ONE (06:51)
--- NOTE | 2018-02-07 06:53 | PDANEPAE ---
ANE History of Present Illness Left TKA ANE Past Medical History - Cardiovascular History Hx Hypertension: Yes Hx Arrhythmias: No Hx Chest Pain: No Hx Coronary Artery / Peripheral Vascular Disease: No Hx CHF / Valvular Disease: No Hx Palpitations: No Cardiovascular History Comment: L BBB, Murmur, mild pulmonary HTN dx 10-15 yrs ago. Nuclear stress test -NEG - Pulmonary History Hx COPD: No Hx Asthma/Reactive Airway Disease: Yes Hx Recent Upper Respiratory Infection: No Hx Oxygen in Use at Home: No Hx Sleep Apnea: No Sleep Apnea Screening Result - Last Documented: Positive Pulmonary History Comment: ENVIRONMENTAL/ANIMAL ISSUES OR. RESPIRATORY ISSUES HAS NOT USED INHALER IN 3 YRS. - Neurologic History Hx Cerebrovascular Accident: No Hx Seizures: No Hx Dementia: No - Endocrine History Hx Diabetes: No - Renal History Hx Renal Disorders: Yes Renal History Comment: CHRONIC UTI LAST 03/2017 - Liver History Hx Hepatic Disorders: No - Neurological & Psychiatric Hx Hx Neurological and Psychiatric Disorders: No - Cancer History Hx Cancer: No - Congenital Disorder History Hx Congenital Disorders: No - GI History Hx Gastrointestinal Disorders: No - Other Health History Other Health History: OSTEOARTHRITIS. ANEMIA. NUMBNESS LT CALF/FOOT IMPROVED POST TOTAL HIP. PELVIC THROMBOPHLEBITIS - Chronic Pain History Chronic Pain: Yes (TRAN KNEE'S) - Surgical History Prior Surgeries: TRAN TOTAL HIP LAST 06/2017. C sections-1988,1991 ANE Review of Systems Review of Systems: - Exercise capacity METS (RN): 3 METS ANE Patient History - Allergies Allergies/Adverse Reactions: amoxicillin [Amoxicillin] Allergy (Verified 05/25/17 14:16) Hives Sulfa (Sulfonamide Antibiotics) [Sulfa(Sulfonamide Antibiotics)] Allergy ( Verified 05/25/17 14:16) Rash - Home Medications Home Medications: Losartan Potassium [Cozaar 25 mg (*)] 25 mg PO HS 02/03/17 [Last Taken 02/06/18 13:00] Acetaminophen [Tylenol Arthritis] 1,300 mg PO BID 01/03/18 [Last Taken 02/06/18 22:30] Ibuprofen [Motrin (*)] 600 mg PO BID PRN 01/03/18 [Last Taken 01/31/18] Gabapentin 02/07/18 [Last Taken 02/06/18 20:00] - Smoking Hx Smoking Status: Former smoker ANE Labs/Vital Signs - Vital Signs Height: 171.45 cm Weight: 113.398 kg ANE Physical Exam - Airway Neck exam: FROM Mallampati Score: Class 2 Mouth exam: normal dental/mouth exam - Pulmonary Pulmonary: clear to auscultation - Cardiovascular Cardiovascular: regular rate and rhythym - ASA Status ASA Status: III ANE Anesthesia Plan Anesthesia Plan: spinal Regional Anesthesia: adductor canal FNB Total IV Anesthesia: Yes
--- NOTE | 2018-02-07 06:56 | PDHPUP ---
History & Physical Update H&P update statement: This history and physical update is based on an assessment of the patient which was completed after admission or registration (within 24 hours), but prior to the surgery/procedure. H&P update: H&P reviewed & patient examined
[2018-02-07] MEDS ORDERED: PROPOFOL/EMULSION 500 MG/50 ML BOTTLE IV ONE ×2 (07:00→07:59)
[2018-02-07] MEDS ORDERED: LIDOCAINE 2% 2 ML INJ ONE (07:00)
[2018-02-07] MEDS ORDERED: BUPIVACAINE/DEXTROSE 7.5MG/ML 2 ML SPINAL AMP SP ONE (07:05)
[2018-02-07] MEDS ORDERED: ROPIVACAINE HCL 150 MG/30 ML INJ ONE (07:39)
[2018-02-07] MEDS ORDERED: PHENYLEPHRINE HCL 100 MCG/ML SYR ONE ×3 (08:00→08:50)
--- NOTE | 2018-02-07 09:00 | POSTOPPROG ---
Post Op Note Date of Operation: 02/07/18 Surgeon: Yaniv Carpenter Nut Dehydrator Operator: Kassy Anesthesiologist: Dyana Anesthesia: IV Sedation, Spinal Post-op Diagnosis: left knee severe arthritis Procedure: Left TKA Inf/Abcess present in the surg proc area at time of surgery?: No EBL: 50-100 (ACB in PACU)
[2018-02-07] MEDS ORDERED: PROMETHAZINE HCL 25 MG SUPPR PR PRN (09:32)
[2018-02-07] MEDS ORDERED: POLYETHYLENE GLYCOL 3350 17 GM PKT PO PRN (09:32)
[2018-02-07] MEDS ORDERED: TEMAZEPAM 15 MG CAP PO PRN (09:32)
[2018-02-07] MEDS ORDERED: diphenhydrAMINE 25 MG CAP PO PRN (09:32)
[2018-02-07] MEDS ORDERED: ONDANSETRON DISINTEGRATING 4 MG TAB PO PRN (09:32)
[2018-02-07] MEDS ORDERED: MAGNESIUM HYDROXIDE 30 ML UDCUP PO PRN (09:32)
[2018-02-07] MEDS ORDERED: METOCLOPRAMIDE 10 MG/2 ML VIAL IVP PRN (09:32)
[2018-02-07] MEDS ORDERED: LACTULOSE 20 GM/30 ML UDCUP PO PRN (09:32)
[2018-02-07] MEDS ORDERED: DIPHENOXYLATE/ATROPINE LOMOTIL 1 TAB PO PRN (09:32)
[2018-02-07] MEDS ORDERED: BISACODYL 10 MG SUPP PR PRN (09:32)
[2018-02-07] MEDS ORDERED: NS 500 ML IV PRN (09:32)
--- NOTE | 2018-02-07 09:51 | POSTANESTH ---
Post Anesthetic Evaluation Cardiovascular Status: Normal, Stable Respiratory Status: Normal, Stable Level of Consciousness/Mental Status: Can Participate in Eval, Alert and Oriented Pain Control: Adequate, Prn Tx Ordered Nausea/Vomiting Control: Adequate, Prn Tx Ordered Complications Possibly Related to Anesthesia: None Noted
--- NOTE | 2018-02-07 09:51 | GOP ---
DATE OF OPERATION: 02/07/2018 SURGEON: Yaniv Carpenter MD EMBOSSING PRESS OPERATOR APPRENTICE: Bolivar Brown and Michael Childress. ANESTHESIA: Combination of Marcaine, spinal, IV sedation, and adductor canal block. ANESTHESIOLOGIST: Garfield Turpin DO. PREOPERATIVE DIAGNOSIS: Left knee severe degenerative arthritis with valgus deformity. POSTOPERATIVE DIAGNOSIS: Left knee severe degenerative arthritis with valgus deformity. PROCEDURE PERFORMED: 02/07/2018, left total knee arthroplasty, cemented, Patel and Nephew Journey II , posterior stabilized. FINDINGS: DESCRIPTION OF PROCEDURE: The patient was given 2 g of IV Ancef preoperatively within 60 minutes of surgery. She also received IV tranexamic acid. She was placed on the operating room table and given spinal anesthesia with Marcaine by Dr. Turpin. She was then placed supine and given IV sedation. A Camacho catheter was not used. She wore a CLAUDIA stocking and SCD on the nonoperative leg. Her left lowe r extremity was prepped with ChloraPrep from the upper thigh tourniquet to the tips of the toes. It was draped free using sterile sheets, stockinette, and Ioban plastic adhesive drape. Her lower leg w as wrapped with compressive Coban. The leg was exsanguinated with elevation and a 6-inch compressive wrap, and the pneumatic tourniquet was inflated to 400 mmHg. Her thigh was very bulky. Her BMI was 38. This necessitated a higher tourniquet pressure. The [employer] time-out was performed to verify the correct patient identity and the c orrect surgical side and site. The [place] time-out was also performed. The Briabe Mobileayo leg holding device was sterilely attached to the operating room table and used throughout the procedure to help position the knee. A straight midline incision made centered on the patella. Subcutaneous tissues were sharply divided, and hemostasis was obtained using electrocautery. She had a deep layer of subcutaneous fat. A medial subcutaneous flap was developed, and the capsule and syn ovium were opened in a medial parapatellar fashion. Extensive degenerative changes were present in a ll 3 compartments. Her medial capsule and periosteum were lightly elevated off the rim of the medial tibial plateau all the way around to the posteromedial corner. In order to improve exposure, her patella was prepared first. The original thickness of the patella was measured. Peripheral osteophytes were removed. I cut a flat surface on the back of the patella. She was sized for a 38 mm round resurfacing component. I removed enough bone from the patella such that the remaining bone plus the thickness of the patellar component recreated the original thicknes s of her patella. The composite thickness was 23 mm. The intramedullary alignment guide system was used to set up the distal femoral cut. The distal femu r was cut in 6 degrees of valgus. She had a slight preoperative flexion contracture and I made a +2 mm cut on the distal femur. The sizing jig was used to determine proper femoral sizing. I shifted t he jig anteriorly 2 mm in order to accommodate a size 4 without notching the anterior cortex. The 5- in-1 cutting block was applied, and the anterior and posterior condylar cuts and chamfer cuts were ma de. The final jig was used to remove the central portion of the distal femur to accommodate the post erior stabilized femoral component. I was careful to determine proper rotation by referencing off Wh itesides line and other bony landmarks. Each cut was checked for accuracy. The femur was sized for a size 4 posterior stabilized component. Next, the tibia was prepared. The proximal tibial cut was made using the extramedullary alignment gu leonardo system. The cut was made in a few degrees of posterior slope. I was careful to achieve proper v arus valgus alignment and proper rotation. The posterior compartment was cleared of meniscal remnant s. Osteophytes were removed from the back of her femoral condyles. Because of her preoperative sign ificant valgus alignment she was tight laterally. I released the iliotibial band off the lateral edg e of the tibial plateau. I also released the popliteus attachment and the femoral attachment of the lateral collateral ligament. I then checked the flexion extension gaps, and they were equal and sherif nced and rectangular. The tibia was sized for a size 4 component. With the trial components in plac e, I selected a 10 mm polyethylene posterior stabilized tibial insert. The knee came to full extensi on and flexed to 120 degrees. Her collateral ligaments were stable and balanced in 90 degrees of fle xion and full extension. The trial patellar button was applied, and patellar tracking was checked. Tracking was excellent without digital pressure. 40 mL of the joint anesthetic cocktail were injected into the posterior capsule, the quadriceps muscl e and tendon areas, and the subcutaneous tissues along the skin edges. The surfaces were prepared for cementing. They were carefully cleaned with the pulsating lavage irri gation and thoroughly dried. The CarboJet device was used to blow dry the cancellous surfaces. A do uble batch of high viscosity methylmethacrylate cement with 2 g of powdered vancomycin added was mixe d. While it was still in a doughy state, all [address] components were cemented in place. Excess cement was removed before it hardened. The 10 mm trial tibial insert was re-tried and was the proper thickness . The actual component was inserted and locked into place. The knee was thoroughly irrigated 1 talha l time with a dilute Betadine solution. The tourniquet was deflated and the total tourniquet time wa s 57 minutes. 50 cc of tranexamic acid solution was instilled into the joint. The joint was packed with a lap and the knee was wrapped with a 6-inch compressive wrap, and this was left in place for ab out 3 or 4 minutes. The vastus medialis portion of the extensor mechanism was repaired with several interrupted figure-of -eight #2 FiberWire sutures. The capsule and synovium were closed first with multiple interrupted fi [id number] 0 PDS sutures, followed by a running #2 barbed Ethicon Stratafix PDO suture. The subcu taneous tissues were closed with a running 0 barbed Ethicon Stratafix Monoderm suture. The skin was closed with a running 3-0 barbed Ethicon Stratafix Monoderm subcuticular suture. The skin was sealed with half-inch Steri-Strips. The wound was covered with a large Mepilex waterproof dressing and a 6 -inch compressive wrap. A long-leg CLAUDIA stocking and SCD were applied, followed by the cooling device . The sacral Mepilex dressing was also applied. I used a size 4 cemented Patel and Nephew Oxinium posterior stabilized femoral component, size 4 ceme nted tibial base plate, a 10 mm posterior stabilized tibial insert and a 38 mm cemented round all-simone yethylene resurfacing patellar component. The estimated blood loss following inflation of the tourniquet was about 100 cc. The sponge and needle count were correct on 2 occasions. She was awakened from anesthesia, transferred to her [facility] and taken to PACU in satisfactor y condition. There were no recognized intraoperative complications. In the PACU, for additional pos toperative pain control, Dr. Turpin performed an adductor canal block with an indwelling catheter. Bolivar Brown and Michael Childress acted as surgical assistants. Their assistance was a medical necess ity for safe completion of the procedure. /[id number]/MODL
[2018-02-07] MEDS ORDERED: LR 1,000 ML IV SCH (10:00)
--- NOTE | 2018-02-07 11:29 | PDMN ---
Medical Necessity Medical necessity: Pt meets inpt criteria per MD order and [facility] S-700, Knee Arthroplasty, Total, A-2days. 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
[2018-02-07] MEDS: KETOROLAC 15 MG/1 ML SDV IVP SCH ×3 (12:05→23:24)
[2018-02-07] MEDS: ACETAMINOPHEN 325 MG TAB PO SCH ×3 (12:05→23:24)
[2018-02-07] MEDS: CYCLOBENZAPRINE 10 MG TAB PO PRN ×2 (13:37→21:55)
[2018-02-07] MEDS: HYDROCODONE/APAP 5/325 TAB PO PRN ×2 (15:39→20:34)
[2018-02-07] MEDS: ceFAZolin 2 GM/DEXTROSE 100 ML IV SCH ×2 (15:46→23:27)
[2018-02-07] MEDS: FAMOTIDINE 20 MG TAB PO SCH (20:35)
[2018-02-07] MEDS: SENNOSIDES/DOCUSATE SODIUM TAB PO SCH (20:35)
[2018-02-07] MEDS: GABAPENTIN 300 MG CAP PO SCH (20:51)
[2018-02-07] MEDS ORDERED: LOSARTAN POTASSIUM 25 MG TAB PO SCH (21:00)
[2018-02-08] MEDS: HYDROCODONE/APAP 5/325 TAB PO PRN ×3 (00:34→10:00)
[2018-02-08] MEDS: ACETAMINOPHEN 325 MG TAB PO SCH ×3 (01:42→10:51)
[2018-02-08] MEDS: KETOROLAC 15 MG/1 ML SDV IVP SCH (06:34)
[2018-02-08] MEDS: CYCLOBENZAPRINE 10 MG TAB PO PRN (06:35)
[2018-02-08] MEDS: SENNOSIDES/DOCUSATE SODIUM TAB PO SCH (08:08)
[2018-02-08] MEDS: GABAPENTIN 300 MG CAP PO SCH (08:08)
[2018-02-08] MEDS: FAMOTIDINE 20 MG TAB PO SCH (08:08)
[2018-02-08] MEDS ORDERED: FERROUS SULFATE 140 MG TAB.ER PO SCH (09:00)
[2018-02-08] MEDS ORDERED: ENOXAPARIN 40 MG/0.4 ML SYR SC SCH (09:00)
[2018-02-08] MEDS ORDERED: traMADol 50 MG TAB PO PRN (09:23)
--- NOTE | 2018-02-08 09:26 | SOAPPROG ---
SOAP Progress Note Assessment/Plan: Assessment: Afebrile. Moderate pain. Up and walking in burgos. Has done stairs. H/H is adequate. Films look good. Dsg is dry. Plan: DC today. Leg alignment film before DC. Out patient PT 02/08/18 09:24 Objective: Vital Signs Temp Pulse Resp BP Pulse Ox 36.6 C 92 14 117/78 92 02/08/18 07:31 02/08/18 07:31 02/08/18 07:31 02/08/18 07:31 02/08/18 07:31 Laboratory Results 02/08/18 04:23 02/07/18 14:49 02/07/18 02/08/18 02/09/18 05:59 05:59 05:59 Intake Total 2400 Output Total 750 Balance 1650 ICD10 Worksheet Patient Problems: Problems Problem Status Onset Osteoarthritis of left knee Acute Osteoarthritis of left hip Acute Osteoarthritis of right hip Acute
--- NOTE | 2018-02-08 09:47 | GDS ---
ADMISSION DIAGNOSIS: Left knee severe degenerative arthritis with valgus deformity. DISCHARGE DIAGNOSIS: Left knee severe degenerative arthritis with valgus deformity. PROCEDURE PERFORMED: 02/07/2018, left total knee arthroplasty. POSTOPERATIVE COMPLICATIONS: None. CONDITION ON DISCHARGE: Improved. DESCRIPTION OF HOSPITAL COURSE: The patient was admitted to the hospital on the morning of surgery. Her admission CBC was normal. The same day, under a combination of Marcaine, spinal, IV sedation, and adductor canal block she underwent a left total knee arthroplasty. Postoperatively, she was treated with multimodal DVT prophylaxis, including lovenox. She has a previous history of DVT. On the first postoperative day, her hemoglobin and hematocrit were 10.8 and 32.9. She was seen by Physical Therapy and made good progress with ambulation, knee range of motion and stairs. By the time of discharge, she was afebrile and was independent walking with a walker. DISPOSITION: Patient discharged to her home. She will go to outpatient physical therapy. She has prescriptions for [place] and tramadol for pain. She will also take Meloxicam 7.5 mg a day for 21 days. Continue lovenox 40 mgs SQ daily for 21 days. Use CLAUDIA stockings for 1 week. She may progress her weightbearing on the left as tolerated. If there are any problems, she is to call me at the office. /[id number]/MODL MTDD
[2018-02-08] MEDS ORDERED: LIPID EMULSION 20% 100 ML IV PRN (09:59)
--- NOTE | 2018-02-08 10:05 | PDPAINCON ---
Pain Management Consultation Patient referred by : Pauline - Subjective Pain is: under control Activity: participating in PT - Objective Technique: continuous peripheral nerve block Site: femoral Catheter site: clean, dry, intact Sensory and motor exam: block has resolved, no apparent ill effects Vital signs: stable - Assessment/Plan Assessment/Plan: pain well-controlled, continue current mgmt (Bolused Ropivicaine 0.5% 20cc thru catheter and removed cath.)
--- NOTE | 2018-02-08 12:19 | ASMTLACE ---
LACE Length of stay for Answers: 2 days current admission Acuity / Level of Answers: Yes Care: Did the patient have an inpatient admission? Comorbidities - select Answers: Opioid dependence all that apply / Chronic pain Other Notes: HTN # of Emergency department Answers: 0 visits in the last 6 months Score: 10 Date Signed: 02/08/2018 12:18 PM Electronically Signed By:PATIENCE Maguire
--- NOTE | 2018-02-08 12:20 | ASMTCMCOM ---
CM Note CM Note Notes: Pt s/p OA of knee. PT and MD rec outpatient. Pt medically stable for d/c, no CM d/c needs identified. Date Signed: 02/08/2018 12:19 PM Electronically Signed By:PATIENCE Maguire
[2018-02-08 12:21] VITALS: BP 108/72
== END 2018-02-08 14:25 | disposition home or self-care (01) ==
LOC: F3N 05:48 → INTOOBSV 09:39 → OBSVTOIN 09:39 → F3N 10:32
PROVIDERS: ADMIT Orthopaedic Surgery; ATTEND Orthopaedic Surgery
PROC: 0SRD0JZ Replacement of Left Knee Joint with Synthetic Substitute, Open Approach (ICD-10-PCS; principal; 2018-02-07 07:15)
DX: M17.12 Unilateral primary osteoarthritis, left knee (principal); M21.062 Valgus deformity, not elsewhere classified, left knee; Z23 Encounter for immunization
CPT/HCPCS: 27447; 73560; 77073; 90471; 97110; 97116; 97161; 97165; G0378; C1713; G0008; J0171; J0690; J1100; J1650; J1885; J2250; J2370; J2405; J2704; J2795; J3370